=== PATIENT | female | born 1970 | race African-American/Black ===

== ENCOUNTER → 2017-10-13 | Outpatient (CLI) | payer SELFPAY ==
[2017-10-13 08:25] LABS: HEMATOCRIT 22.2 % (36.0-47.0); HEMOGLOBIN 6.6 g/dL (12.0-15.5); MEAN CORPUSCULAR HGB CONC 29 g/dL (31-37)
[2017-10-13] MEDS: diphenhydrAMINE HCL 25 MG CAPSULE PO (08:44)
[2017-10-13] MEDS: ACETAMINOPHEN 325 MG TABLET. PO (08:45)
[2017-10-13 09:19] LABS: IMMEDIATE SPIN CROSSMATCH 1 1
== END | disposition home or self-care (01) ==
LOC: OPS 07:32
DX: D64.9 Anemia, unspecified (principal)
CPT/HCPCS: 36415; 36430; 85014; 85018; 86850; 86900; 86901; 86920; P9016; Q0163